=== PATIENT | male | born 1965 | race Native Hawaiian/Other Pacific Islander ===

== ENCOUNTER 2017-08-23 09:35 | Inpatient (IN) | payer OTHER ==
[~2017-08-23] VITALS: Ht 177.8 cm; Wt 120.0 kg
[2017-08-23 10:48] LABS: PLATELET COUNT 197 K/uL (142-355)
[2017-08-23 13:45] LABS: POTASSIUM 3.5 mmol/L (3.6-5.2)
[2017-08-23 14:34] VITALS: BP 148/94; TEMP 99.3; Ht 177.8 cm; Wt 120.0 kg
[2017-08-23 16:00] VITALS: BP 117/67; TEMP 99.7
[2017-08-23 20:00] VITALS: BP 140/74; TEMP 98.3
[2017-08-24] VITALS: BP 143/68; TEMP 98.1
[2017-08-24 04:00] VITALS: BP 130/70; TEMP 97.7
[2017-08-24 05:18] LABS: PLATELET COUNT 161 K/uL (142-355)
[2017-08-24 05:30] LABS: POTASSIUM 3.3 mmol/L (3.6-5.2)
[2017-08-24 08:00] VITALS: BP 117/69; TEMP 97.9
[2017-08-24 12:00] VITALS: BP 118/67; TEMP 98.2
[2017-08-24 16:00] VITALS: BP 106/70; TEMP 98.3
[2017-08-24 20:00] VITALS: BP 112/64; BP 169/68; TEMP 98.3; TEMP 99
[2017-08-25] VITALS (7 sets, daily range): BP systolic 107–147; BP diastolic 65–81; TEMP 97.8–98.6
[2017-08-25 05:35] LABS: PLATELET COUNT 171 K/uL (142-355)
[2017-08-25 06:03] LABS: POTASSIUM 3.7 mmol/L (3.6-5.2)
[2017-08-26 04:00] VITALS: BP 138/76; TEMP 97.9
[2017-08-26 07:54] LABS: PLATELET COUNT 177 K/uL (142-355)
[2017-08-26 07:57] LABS: POTASSIUM 3.6 mmol/L (3.6-5.2)
[2017-08-26 08:07] VITALS: BP 155/81; TEMP 98.8
[2017-08-26 11:56] VITALS: BP 149/87; TEMP 98
[2017-08-26 16:00] VITALS: BP 162/89; TEMP 98
[2017-08-26 20:00] VITALS: BP 144/78; TEMP 98.2
[2017-08-26 23:58] VITALS: BP 144/89; TEMP 98.4
[2017-08-27 04:00] VITALS: BP 129/79; TEMP 97.9
[2017-08-27 05:49] LABS: POTASSIUM 3.9 mmol/L (3.6-5.2)
[2017-08-27 06:15] LABS: PLATELET COUNT 173 K/uL (142-355)
[2017-08-27 07:54] VITALS: BP 154/82; TEMP 97.8
[2017-08-27 12:24] VITALS: BP 141/78; TEMP 97.8
[2017-08-27 16:00] VITALS: BP 144/83; TEMP 98.1
[2017-08-27 20:00] VITALS: BP 148/86; TEMP 98.7
[2017-08-28] VITALS: BP 151/84; TEMP 98.8
[2017-08-28 04:00] VITALS: BP 160/90; TEMP 98.7
[2017-08-28 07:32] LABS: PLATELET COUNT 188 K/uL (142-355)
[2017-08-28 07:46] VITALS: BP 154/87; TEMP 98.7
[2017-08-28 11:33] VITALS: BP 153/81; TEMP 98
[2017-08-28] MEDS ORDERED: LEVAQUIN250 MG PO (14:14)
== END 2017-08-28 15:08 | disposition home or self-care (01) | DRG 189 ==
LOC: MED/SURG 09:35
PROVIDERS: Family Medicine; ADMIT Nurse Practitioner
DX: J96.01 Acute respiratory failure with hypoxia (principal); J13 Pneumonia due to Streptococcus pneumoniae; E66.8 Other obesity
CPT/HCPCS: 36415; 36600; 80053; 80202; 82805; 82948; 83036; 83880; 85027; 85379; 87040; 87070; 87205; 87804; 87899; 93005; 94640; 94664; 94760; 96365; 96366; 96367; 96372; 96375; J1650; J1885; J1956; J2930; J3370

== ENCOUNTER 2019-08-24 09:13 | Inpatient (IN) | payer OTHER ==
[~2019-08-24] VITALS: Ht 177.8 cm; Wt 119.5 kg
[2019-08-24] VITALS (23 sets, daily range): BP systolic 10–183; BP diastolic 62–94; TEMP 98.4–98.8; Ht 177.8 cm; Wt 119.5 kg
[~2019-08-24 09:13] MED LIST: LEVAQUIN250 MG PO
[2019-08-24 09:49] LABS: PLATELET COUNT 193 K/uL (142-355)
[2019-08-24 09:50] LABS: POTASSIUM 4.2 mmol/L (3.6-5.2); SODIUM 136 mmol/L (136-145)
[2019-08-24] MEDS ORDERED: METF500T PO (09:55)
[2019-08-24] MEDS ORDERED: METFTAB PO (15:38)
[2019-08-25] VITALS (14 sets, daily range): BP systolic 102–129; BP diastolic 50–74; TEMP 98–98.6
[2019-08-25 05:29] LABS: PLATELET COUNT 165 K/uL (142-355)
[2019-08-25 05:51] LABS: POTASSIUM 4.4 mmol/L (3.6-5.2)
[2019-08-26] VITALS (12 sets, daily range): BP systolic 103–139; BP diastolic 48–78; TEMP 97.8–99.7
[2019-08-26 06:34] LABS: PLATELET COUNT 148 K/uL (142-355)
[2019-08-26 06:36] LABS: POTASSIUM 4.3 mmol/L (3.6-5.2)
[2019-08-27] VITALS (11 sets, daily range): BP systolic 114–149; BP diastolic 45–80; TEMP 97.9–98.7
[2019-08-27 06:08] LABS: PLATELET COUNT 172 K/uL (142-355)
[2019-08-27 06:21] LABS: POTASSIUM 4.3 mmol/L (3.6-5.2)
[2019-08-28] VITALS (7 sets, daily range): BP systolic 133–176; BP diastolic 67–93; TEMP 97.7–98.5
[2019-08-28 06:15] LABS: PLATELET COUNT 183 K/uL (142-355)
[2019-08-28 06:19] LABS: POTASSIUM 4.3 mmol/L (3.6-5.2)
[2019-08-29 03:53] VITALS: BP 158/71; TEMP 98.9
[2019-08-29 08:00] VITALS: BP 147/80; TEMP 97.7
[2019-08-29 12:00] VITALS: BP 129/71; TEMP 97.5
[2019-08-29] MEDS ORDERED: BENZONATATE100 MG PO (17:13)
[2019-08-29] MEDS ORDERED: BUDE1AER5 INH (17:15)
[2019-08-29] MEDS ORDERED: PRED20TA27 PO ×2 (17:16→17:17)
[2019-08-29] MEDS ORDERED: PRED10TA27 PO (17:18)
[2019-08-29] MEDS ORDERED: CEFD300C2 PO (17:19)
== END 2019-08-29 17:30 | disposition home or self-care (01) | DRG 871 ==
LOC: ED 09:13 → MED/SURG 12:25 → ICU 14:00 → MED/SURG 08-27 19:05
PROVIDERS: Internal Medicine; ADMIT Emergency Medicine
DX: A41.89 Other specified sepsis (principal); J15.5 Pneumonia due to Escherichia coli; J96.01 Acute respiratory failure with hypoxia; E11.9 Type 2 diabetes mellitus without complications; J44.9 Chronic obstructive pulmonary disease, unspecified; E66.8 Other obesity; G47.33 Obstructive sleep apnea (adult) (pediatric); Z68.37 Body mass index [BMI] 37.0-37.9, adult
CPT/HCPCS: 36415; 36600; 80048; 80053; 80202; 82550; 82553; 82805; 83036; 83605; 84484; 85007; 85027; 85379; 87040; 87070; 87077; 87186; 87205; 87502; 87651; 93005; 94640; 94660; 94664; 94760; 96365; 96375; 99284; J0456; J0696; J1650; J1815; J2060; J2920; J2930; J3370; J7120

== ENCOUNTER 2021-06-08 09:50 | Outpatient (CLI) | payer OTHER ==
[~2021-06-08 09:50] MED LIST changes: +BENZONATATE100 MG PO; +BUDE1AER5 INH; +CEFD300C2 PO; +METF500T PO; +METFTAB PO; +PRED10TA27 PO; +PRED20TA27 PO
== END 2021-06-08 18:58 | disposition home or self-care (01) ==
LOC: RAD 09:50
PROVIDERS: ATTEND Nurse Practitioner Family
DX: S89.91XA Unspecified injury of right lower leg, initial encounter (principal); Y92.9 Unspecified place or not applicable

== ENCOUNTER 2021-09-21 09:15 | Outpatient (CLI) | payer OTHER | END 2021-09-21 19:09 | disposition home or self-care (01) | LOC: RAD 09:15 | PROVIDERS: ATTEND Nurse Practitioner | DX: Z01.818 Encounter for other preprocedural examination (principal) ==